=== PATIENT | female | born 1965 | race Caucasian/White ===

== ENCOUNTER 2020-10-31 18:57 | Emergency (ER) | payer OTHER, SELFPAY ==
[2020-10-31 19:08] VITALS: BP 168/91; PULSE 80; RESP 20; TEMP 36.6; O2SAT 100
--- NOTE | 2020-10-31 20:02 | ED.GENADULT ---
HPI - General Adult General Chief complaint: Eye Problems Stated complaint: right eye redness Time Seen by Provider: 10/31/20 20:03 Source: patient and RN notes reviewed Mode of arrival: ambulatory Limitations: no limitations History of Present Illness HPI narrative: 55-year-old female presents with complaints of photophobia, tearing, sensation of foreign body in right eye for the past 2 hours. 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 ?Rubbing RT eye without relief. ?Exacerbating factor light. ?Relieving factors is closing eyes. ?Denies blurred vision, double vision, or pain of eye with movement. ?Wear glasses. ?Denies fever or chills. ?LMP post- menopausal (used -control until 2 years ago). ?Remains active. ?The patient reports she has not been diagnosed with COVID-19.? The patient reports she is not waiting for the results of a COVID-19 lab test.? The patient reports she does not have fever, chills, weakness, or fatigue.? The patient reports she does not have a new or worsening cough or shortness of breath. ?Denies chest pain.? The patient reports she does not have any rhinorrhea, congestion, sore throat, loss of taste or smell, nausea, vomiting, abdominal pain, and diarrhea.? Tolerating po intake well. Recently travelled to [place] within the past 2 weeks.? Denies concerns for COVID-19 or exposures.? At this time, the patient is not suspected of having COVID-19.?? Some parts of this dictation were generated by voice recognition software and may contain typographical and/or grammatical inaccuracies. Related Data Home Medications Medication Instructions Recorded Confirmed hydrochlorothiazide 25 mg PO DAILY 10/31/20 10/31/20 levothyroxine [Synthroid] 75 mcg PO DAILY 10/31/20 10/31/20 Allergies Allergy/AdvReac Type Severity Reaction Status Date / Time prednisone AdvReac Mild Other Verified 10/31/20 19:35 Review of Systems Review of Systems: Narrative: CONSTITUTIONAL: Denies fever, chills, sweats. EYES: Denies visual changes. Complaints of photophobia, tearing, sensation of foreign body in right eye. ENT: Denies rhinorrhea, congestion, sore throat, otalgia. CARDIOVASCULAR: Denies chest pain, palpitations, edema. RESPIRATORY: Denies dyspnea, wheezing, cough. GASTROINTESTINAL: Denies abdominal pain, nausea, vomiting, diarrhea. SKIN: Denies rash or itching. MUSCULOSKELETAL: Denies acute back pain, joint pain, or myalgia. NEUROLOGIC: Denies numbness or focal weakness. PSYCHIATRIC: Denies anxiety or depression. All systems reviewed & are unremarkable except as noted in HPI and below PMFSH Past Medical History Medical History (Updated 11/01/20 @ 00:00 by Niya Pruitt) Hypercholesteremia Hypertension Hypothyroidism Post-menopausal Surgical History Surgical History (Updated 10/31/20 @ 20:24 by MAVERICK Redding) H/O partial thyroidectomy Family History Family History (Updated 10/31/20 @ 20:25 by MAVERICK Redding) Father Cerebrovascular accident Mother Hypertension Diabetes mellitus Social History Social History (Updated 10/31/20 @ 20:25 by MAVERICK Redding) Smoking status: Former smoker Tobacco type: cigarettes Second hand tobacco smoke exposure: No Smoking end date: 05/23/03 Alcohol intake: current Substance use: never Living arrangements: with family Occupation/Education: occupation Gender identity (if verbalized by the patient): Female Sexual Orientation (if Verbalized by the Patient): Straight or Heterosexual Comments At time of signature, I have reviewed and agree with the nursing past medical, surgical, social, and family history. ?Please see the nursing chart for further information. ?There is no relevant family history pertinent to the presenting complaint. Exam Narrative: Exam Narrative: GENERAL: This is a well-nourished, well-developed patient, in no apparent distress. HEAD: Normocephalic
--- NOTE | 2020-10-31 20:53 | PC.NURSE ---
Pharmacy closed. Pt requested prescription be called in to [facility]. Prescription called in to [facility] pharmacist at [facility].
== END 2020-10-31 20:34 | disposition home or self-care (01) ==
PROVIDERS: Emergency Provider Nurse Practitioner Family; PCP Family Medicine
DX: S05.01XA Injury of conjunctiva and corneal abrasion without foreign body, right eye, initial encounter (principal); X58.XXXA Exposure to other specified factors, initial encounter; E78.00 Pure hypercholesterolemia, unspecified; I10 Essential (primary) hypertension; E89.0 Postprocedural hypothyroidism; Z87.891 Personal history of nicotine dependence
CPT/HCPCS: 99213; A9270; G0463

== ENCOUNTER 2023-03-04 17:44 | Emergency (ER) | payer OTHER, SELFPAY ==
--- NOTE | 2023-03-04 17:53 | ED.GENADULT ---
HPI - General Adult General Chief complaint: Ear Stated complaint: Left Ear Irritation Time Seen by Provider: 03/04/23 18:10 Source: patient, RN notes reviewed and old records reviewed Mode of arrival: ambulatory Limitations: no limitations History of Present Illness HPI narrative: 58-year-old female presents to the [facility] with left ear pressure that started about 2 hours ago. Patient states that she is a large it to prednisone, can not take steroids. Cannot use antihistamines due to migraines as well as nasal spray caused her cataracts. Related Data Home Medications Medication Instructions Recorded Confirmed hydrochlorothiazide 25 mg tablet 25 mg PO DAILY 10/31/20 03/04/23 levothyroxine 75 mcg tablet 75 mcg PO DAILY 10/31/20 03/04/23 (Synthroid) Allergies Allergy/AdvReac Type Severity Reaction Status Date / Time prednisone AdvReac Mild Other Verified 03/04/23 17:45 Review of Systems Review of Systems: All systems reviewed & are unremarkable except as noted in HPI and below Constitutional: Constitutional: Reports no additional constitutional complaints Eyes: Eyes: Reports no additional eye complaints ENT: Reports as per HPI Cardiovascular: Cardiovascular: Reports no additional cardiovascular complaints, Denies chest pain and Denies dyspnea Respiratory: Respiratory: Reports no additional respiratory complaints, Denies chest congestion, Denies cough and Denies dyspnea Gastrointestinal: Gastrointestinal: Reports no additional gastrointestinal complaints, Denies abdominal pain, Denies nausea and Denies vomiting Musculoskeletal: Musculoskeletal: Reports no additional musculoskeletal complaints Integumentary/Breasts: Skin/Breast: Reports system reviewed and no additional complaints, except as docu Neurologic: Reports system reviewed and no additional complaints, except as documented Psychiatric: Psychiatric: Reports no additional psychiatric complaints Allergic/Immunologic: Allergic/Immunologic: Reports no additional allergic/immunologic complaints [facility] Past Medical History Medical History Hypercholesteremia Hypertension Hypothyroidism Post-menopausal Surgical History Surgical History H/O partial thyroidectomy Family History Family History Father Cerebrovascular accident Mother Hypertension Diabetes mellitus Social History Social History Smoking status: Former smoker Tobacco type: cigarettes Second hand tobacco smoke exposure: No Smoking end date: 05/23/03 Alcohol intake: current Substance use: never Living arrangements: with family Occupation/Education: occupation Gender identity (if verbalized by the patient): Female Sexual Orientation (if Verbalized by the Patient): Straight or Heterosexual Comments At the time of my signature, I reviewed and agree with the nursing past medical, surgical, social, and family history. There is no relevant family history pertinent to the patient complaint. Exam Const: General: cooperative, healthy appearing, comfortable, no acute distress, well developed, alert and well nourished Nutritional Appearance: well nourished Orientation/consciousness: patient oriented x3 Limitations: no limitations HENMT: Head: normal to inspection Ears: hearing grossly normal bilaterally, external ears normal, EAC's normal and TM abnormal bulging on the left and with fluid behind the TM on the left (clear ); with no loss of landmarks Face/Nose/Sinus: Normal external nose present, Normal nares present, Normal nasal mucous membranes and turbinates present, normal facial exam and face symmetric Face and sinus: normal facial exam and face symmetric Mouth: Yes Normal oral and palatal mucosa present, Yes lip normal and Yes moist muc
[2023-03-04 17:59] VITALS: BP 143/85; PULSE 90; RESP 16; TEMP 37.7; O2SAT 100
== END 2023-03-04 18:28 | disposition home or self-care (01) ==
PROVIDERS: Emergency Provider Nurse Practitioner; PCP Family Medicine
DX: H65.02 Acute serous otitis media, left ear (principal); I10 Essential (primary) hypertension; E03.9 Hypothyroidism, unspecified; Z79.899 Other long term (current) drug therapy; Z87.891 Personal history of nicotine dependence
CPT/HCPCS: 99213; G0463